=== PATIENT | male | born 1970 | race Two or more races ===

== ENCOUNTER 2021-03-09 01:16 | Emergency (ER) | payer SELFPAY ==
--- NOTE | 2021-03-09 01:44 | EDM.PDOC ---
<Haroon Lezama - Last Filed: 03/09/21 06:01> ED HPI GENERAL MEDICAL PROBLEM - General Chief Complaint: Drug or Alcohol Abuse Stated Complaint: TRAUMA ALERT Time Seen by Provider: 03/09/21 01:37 - History of Present Illness INITIAL COMMENTS - FREE TEXT/NARRATIVE: History of present illness: [] EMS pick this patient up unconscious at a [facility] where they were 10 people that they thought might be intoxicated or under the influence of some substance that altered mental status. To the democr[facility] were unconscious. This 1 was the hardest arouse. He moved about a moment a little bit after Narcan but then he became unconscious again. His oxygen saturations were in the 80s and he appeared not able to protect his airway. He had a [place] Coma Scale of 4 on arrival. Review of systems: As per history of present illness and below otherwise all systems reviewed and negative. Past medical history: As per history of present illness and as reviewed below otherwise noncontributory. Surgical history: As per history of present illness and as reviewed below otherwise noncontributory. Social history: No reported history of drug or alcohol abuse. Family history: As per history of present illness and as reviewed below otherwise noncontributory. Physical exam: Constitutional - well developed, well-nourished and in no acute distress HEENT - normocephalic, no evidence of trauma - external nose and mouth normal - no mass in neck and no JVD - mucosae moist EYES -pupils small and fixed, no icterus - no evidence of inflammation, injection, or drainage Respiratory -diminished respiratory effort, equal bilateral expansion, lungs clear to auscultation and no abnormal lung sounds Cardiovascular - Regular Rhythm with S1 and S2 appreciated and no murmur, gallop or rub. GI - abdomen soft without distension or organomegaly - normal bowel sounds - no guard or rebound Musculoskeletal no gross deformity of long bones or joints - no tenderness, swelling or edema Neurologic -unconscious. Made some movements to noxious stimuli but did not open his eyes and did not vocalize. There were no meaningful movements. Psychiatric -unable to assess Hematologic - No petechiae or purpura - mucosa appropriate color and sclera not pale - normal nail bed color and refill Integument - no rash or evidence of trauma - normal turgor Diagnostics: [] Therapeutics: [] Impression: [] Plan: [] Definitive disposition and diagnosis as appropriate pending reevaluation and review of above. - Related Data Allergies Allergy/AdvReac Type Severity Reaction Status Date / Time No Known Allergies Allergy Verified 03/09/21 03:03 ED ROS GENERAL - Review of Systems Review Of Systems: Unable To Obtain Reason Not Obtained: Patient unconscious ED EXAM, GENERAL - Physical Exam Exam: See Below Free Text/Narrative:: My physical exam is in the [facility] ED GENERAL MEDICAL PROCEDURES - Endotracheal Intubation Time of Intubation: 01:55 ET Intubation Indication: Airway Protection Preparation: Suction, Balloon Tested, BVM Set Up Airway Assessment: Profuse Secretions Pre-Oxygenation: Assisted with BVM Anesthesia Meds: Etomidate, Rocuronium Placement: Orotracheal Cords Visualized: Yes ETT Size In mm: 7.5 Number of Attempts: 2 Confirmed By: CO2 Indicator, Bilateral Breath Sounds, Chest Xray Tube Secured By: By RT Endotracheal Intubation Comment: The experienced Medic assisted with the visualization of the cords and initial attempt to pass the tube. The patient did not vomit but she was unsuccessful in intubating the trachea. I took over and when I visualize cords I was able to pass the tube the trachea. Initially right breath sounds were better than the left. I repositioned the tube 2 cm higher after seeing the x-ray showing a tube right at the sudha. Repeat x-ray was good showing it to be in good position ventilating both lungs. #1 Interpretation EKG Interpretation Comments: EKG date 03/09/2021 time 3:08 AM rhythm sinus rhythm rate 73 CA 129 [place] 83 QRS right bundle branch block impression no acute injury Course - Vital Signs Text/Narrative:: This patient, and unable to protect his airway. I intubated him. Narcan did not really cause him enough response to be able to protect his airway. While he was intubated he vomited. After he vomited he woke up enough that he was able to open his eyes and make purposeful movements. We successfully extubated him. His alcohol level is 483 and everyone that was in the apartment where they found him was way too far intoxicated to be expected to come and get him. It looks like we will have to let him wait A while before we will be able to fully determine how organomegaly disposition on this patient. Due to a high probability of clinically significant, life threatening deterioration, the patient required my highest level of preparedness to intervene emergently and I personally spent this critical care time directly and personally managing the patient. This critical care time included obtaining a history; examining the patient; pulse oximetry; ordering and review of studies; arranging urgent treatment with development of a management plan; evaluation of patient's response to treatment; frequent reassessment; and, discussions with other providers. This critical care time was performed to assess and manage the high probability of imminent, life-threatening deterioration that could result in multi-organ failure. It was exclusive of separately billable procedures and treating other patients and teaching time. Time 45 minutes This patient was seen and evaluated during the 2019 SARS-CoV-2 novel coronavirus pandemic period. Community viral transmission is ongoing at time of this encounter and the emergency department is operating under pandemic response procedures. Last Recorded V/S: 10 04 the patient had a [place] Coma Scale of about 6 on arrival her last. We extubated him at this time because he is making purposeful movements and opening his eyes and has a [place] greater than 8. Patient is breathing well on his own. While he was intubated with the cuff inflated he did vomit but it did not appear there was any opportunity to aspirate. Alcohol levels 483 and nothing else showed up in the drug screen but since he responded somewhat to Narcan there likely or other drugs involved. Due to a high probability of clinically significant, life threatening deterioration, the patient required my highest level of preparedness to intervene emergently and I personally spent this critical care time directly and personally managing the patient. This critical care time included obtaining a history; examining the patient; pulse oximetry; ordering and review of studies; arranging urgent treatment with development of a management plan; evaluation of patient's response to treatment; frequent reassessment; and, discussions with other providers. This critical care time was performed to assess and manage the high probability of imminent, life-threatening deterioration that could result in multi-organ failure. It was exclusive of separately billable procedures and treating other patients and teaching time. Total time 45 minutes This patient was seen and evaluated during the 2019 SARS-CoV-2 novel coronavirus pandemic period. Community viral transmission is ongoing at time of this encounter and the emergency department is operating under pandemic response procedures. Departure - Departure Disposition: Home, Self-Care 01 Condition: Good Clinical Impression: Alcoholic coma, Alcohol intoxication - Discharge Information Instructions: Alcohol Intoxication, [id number] Referrals: PCP,None [Primary Care Provider] - Forms: ED Department Discharge Additional Instructions: The following information is given to patients seen in the emergency department who are being discharged to home. This information is to outline your options for follow-up care. We provide all patients seen in our emergency department with a follow-up referral. The need for follow-up, as well as the timing and circumstances, are variable depending upon the specifics of your emergency department visit. If you don't have a primary care physician on staff, we will provide you with a referral. We always advise you to contact your personal physician following an emergency department visit to inform them of the circumstance of the visit and for follow-up with them and/or the need for any referrals to a consulting specialist. The emergency department will also refer you to a specialist when appropriate. This referral assures that you have the opportunity for follow-up care with a specialist. All of these measure are taken in an effort to provide you with optimal care, which includes your follow-up. Under all circumstances we always encourage you to contact your private physician who remains a resource for coordinating your care. When calling for follow-up care, please make the office aware that this follow-up is from your recent emergency room visit. If for any reason you are refused follow-up, please contact the [facility] at and asked to speak to the emergency department charge nurse. [facility] [address] [place] [address] [place] [address] <Yandel Kuo - Last Filed: 03/09/21 08:35> Course - Vital Signs Last Recorded V/S: Last Vital Signs Temp 98 F 03/09/21 06:01 Pulse 75 03/09/21 08:04 Resp 18 03/09/21 06:39 BP 92/59 L 03/09/21 08:04 Pulse Ox 94 L 03/09/21 08:04 - Orders/Labs/Meds Orders: Active Orders 24 hr Category Date Time Status Mina Catheter Insertion [Insert Urinary Catheter] [OM. Care 03/09/21 01:45 Ordered PC] Q24H Urinary Catheter Assessment [RC] ASDIRECTED Care 03/09/21 01:37 Active Meds: Medications Discontinued Medications Generic Name Dose Route Start Last Admin Trade Name Laureano PRN Reason Stop Dose Admin Sodium Chloride 1,000 mls @ 999 mls/hr 03/09/21 04:48 03/09/21 04:49 Normal Saline IV 03/09/21 05:48 999 mls/hr .BOLUS ONE Administration Naloxone HCl 4 mg 03/09/21 02:59 03/09/21 02:18 Naloxone 0.4 Mg/Ml Syringe IVPUSH 03/09/21 03:00 4 mg ONETIME ONE Administration - Re-Assessments/Exams Free Text/Narrative Re-Assessment/Exam: 03/09/21 08:34 GEN awake and alert and ambulating tolerating p.o. Patient has a friend is also in ER with him patient will be discharged to have another friend come to pick both of them up. Departure - Departure Time of Disposition: 08:35 Condition: Good Sepsis Event Note (ED) - Focused Exam Vital Signs: Vital Signs Temp Pulse Resp BP Pulse Ox 03/09/21 08:04 75 92/59 L 94 L 03/09/21 07:30 73 91/60 94 L 03/09/21 06:39 66 18 98/60 98 03/09/21 06:01 98 F 68 20 108/66 97 03/09/21 05:28 98.2 F 77 18 114/72 98 03/09/21 04:59 98.2 F 68 18 91/57 L 98 03/09/21 04:34 68 18 98/52 L 98 03/09/21 03:56 98.2 F 68 18 109/61 98 03/09/21 01:20 98.4 F 70 18 98/58 L 99
--- NOTE | 2021-03-09 02:24 | CR ---
INDICATION: Post intubation. Evaluate 2 position. TECHNIQUE: Supine AP view of the chest, 2 images. COMPARISON: None. FINDINGS: Endotracheal tube tip 1.5 cm above the sudha. Lungs low in volume with minor atelectasis in the left base. No obvious pleural effusion. Heart size normal. No significant bony abnormality. IMPRESSION: 1. Endotracheal tube tip 1.5 cm above the sudha. 2. Lungs low in volume with mild left basilar atelectasis. Dictated by Narayan Brunner MD @ 03/09/2021 2:22:[address] Narayan Brunner @ Mar 09 2021 2:22AM
[2021-03-09] MEDS ORDERED: Naloxone 0.4 MG/ML Syringe IVPUSH ONE (02:59)
[2021-03-09] MEDS ORDERED: Sodium Chloride 0.9% 1,000 ML IV ONE (04:48)
== END 2021-03-09 08:30 | disposition home or self-care (01) ==
LOC: MW.ED 01:16 → EDBD 01:16 → MW.ED 08:30
DX: F10.129 Alcohol abuse with intoxication, unspecified (principal); R40.20 Unspecified coma
CPT/HCPCS: 31500; 51702; 71045; 93005; 96374; 99285; A9270; G0390; J7030